=== PATIENT | female | born 1965 | race Two or more races ===

== ENCOUNTER 2017-04-05 12:07 | Observation (INO) | payer BC, OTHER ==
[2017-04-05] MEDS ORDERED: ASPIRIN 81 MG TABLET, CHEWABLE PO ONE (12:22)
[2017-04-05] MEDS ORDERED: AMLODIPINE BESYLATE 5 MG TABLET PO ONE (12:36)
--- NOTE | 2017-04-05 12:37 | ER Document Report ---
ED Medical Screen (RME) - General Chief Complaint: Chest Pain Stated Complaint: CHEST PAIN TRAVEL OUTSIDE OF THE [place] IN LAST 30 DAYS: No - HPI Notes: 04/05/17 12:36 Chest pain greater 24 hours described as tightness center of the chest with elevated blood pressure states compliant with her blood pressure medication amlodipine 2.5 mg Benzapril 10 mg - Related Data Allergies/Adverse Reactions: No Known Allergies Allergy (Verified 04/05/17 12:35) Past Medical History - Past Medical History Cardiac Medical History: Reports: Hx Hypertension Renal/ Medical History: Denies: Hx Peritoneal Dialysis GI Medical History: Reports: Hx Ulcer Past Surgical History: Reports: Hx Section, Hx Cholecystectomy, Hx Gastric Bypass Surgery - Immunizations Hx Diphtheria, Pertussis, Tetanus Vaccination: Yes Review of Systems - Review of Systems Cardiovascular: Chest pain Physical Exam - Vital signs Vitals: Temp Pulse Resp BP Pulse Ox 98.8 F 105 H 18 195/90 H 99 04/05/17 12:16 04/05/17 12:16 04/05/17 12:16 04/05/17 12:16 04/05/17 12:16 - Cardiovascular Rhythm: Regular Heart sounds: Normal auscultation Course - Re-evaluation Re-evalutation: 04/05/17 12:37 RI have greeted and performed a rapid initial assessment of this patient. A comprehensive ED assessment and evaluation of the patient, analysis of test results and completion of the medical decision making process will be conducted by additional ED providers. - Vital Signs Vital signs: Temp Pulse Resp BP Pulse Ox 98.8 F 105 H 18 195/90 H 99 04/05/17 12:16 04/05/17 12:16 04/05/17 12:16 04/05/17 12:16 04/05/17 12:16
--- NOTE | 2017-04-05 12:52 | ER Document Report ---
ED General - General Chief Complaint: Chest Pain Stated Complaint: CHEST PAIN Mode of Arrival: Ambulatory Information source: Patient Notes: 51-year-old female history of hypertension presents with complaints of high blood pressure chest pressure sensation down the left arm associated with shortness of breath.patient denies any previous previous MIs, admits to history congestive heart failure TRAVEL OUTSIDE OF THE [place] IN LAST 30 DAYS: No - HPI Onset: Yesterday Onset/Duration: Persistent Quality of pain: Pressure Severity: Mild Pain Level: 1 Associated symptoms: Chest pain, Shortness of breath Exacerbated by: Walking Relieved by: Denies Similar symptoms previously: Yes Recently seen / treated by doctor: No - Related Data Allergies/Adverse Reactions: No Known Allergies Allergy (Verified 04/05/17 12:35) Home Medications: Current Home Medications Amlodipine Besylate/Benazepril [Amlodipine-Benazepril 2.5-10] 1 each PO DAILY [History] Past Medical History - Social History Smoking Status: Never Smoker Cigarette use (# per day): No Chew tobacco use (# tins/day): No Smoking Education Provided: No Family History: CAD Patient has suicidal ideation: No Patient has homicidal ideation: No - Past Medical History Cardiac Medical History: Reports: Hx Hypertension Renal/ Medical History: Denies: Hx Peritoneal Dialysis GI Medical History: Reports: Hx Ulcer Past Surgical History: Reports: Hx Section, Hx Cholecystectomy, Hx Gastric Bypass Surgery - Immunizations Hx Diphtheria, Pertussis, Tetanus Vaccination: Yes Review of Systems - Review of Systems Notes: PHYSICAL EXAMINATION: GENERAL: Well-appearing, well-nourished and in no acute distress. HEAD: Atraumatic, normocephalic. EYES: Pupils equal round and reactive to light, extraocular movements intact, conjunctiva are normal. ENT: Nares patent, oropharynx clear without exudates. Moist mucous membranes. NECK: Normal range of motion, supple without lymphadenopathy LUNGS: Breath sounds clear to auscultation bilaterally and equal. No wheezes rales or rhonchi. HEART: Regular rate and rhythm without murmurs ABDOMEN: Soft, nontender, nondistended abdomen. No guarding, no rebound. No masses appreciated. Female : deferred Musculoskeletal: Normal range of motion, no pitting or edema. No cyanosis. NEUROLOGICAL: Cranial nerves grossly intact. Normal speech, normal gait. Normal sensory, motor exams PSYCH: Normal mood, normal affect. SKIN: Warm, Dry, normal turgor, no rashes or lesions noted. Physical Exam - Vital signs Vitals: Temp Pulse Resp BP Pulse Ox 98.8 F 105 H 18 195/90 H 99 04/05/17 12:16 04/05/17 12:16 04/05/17 12:16 04/05/17 12:16 04/05/17 12:16 Course - Re-evaluation Re-evalutation: 04/05/17 14:00 First set cardiac enzymes are negative EKG noted sinus tachycardia, otherwise patient looks well is in no significant distress she is quite hypertensive and was given her home medication and has been placed on monitor and will be admitted for hospital observation for her chest pain - Vital Signs Vital signs: Temp Pulse Resp BP Pulse Ox 98.8 F 105 H 18 195/90 H 99 04/05/17 12:16 04/05/17 12:16 04/05/17 12:16 04/05/17 12:16 04/05/17 12:16 - Laboratory Result Diagrams: 04/05/17 12:40 04/05/17 12:40 Laboratory results interpreted by me: 04/05/17 04/05/17 12:40 12:45 Sodium 146.1 H Urine Blood MODERATE H - Diagnostic Test Radiology reviewed: Image reviewed, Reports reviewed - EKG Interpretation by Ne EKG shows normal: Sinus rhythm, [place], Intervals, QRS Complexes Rate: Tachycardia Discharge - Discharge Clinical Impression: Hypertensive urgency Chest pain Qualifiers: Chest pain type: unspecified Qualified Code(s): R07.9 - Chest pain, unspecified Admitting Provider: Hospitalist Unit Admitted: Telemetry
[2017-04-05 13:01] LABS: ABSOLUTE LYMPHOCYTES (AUTO) 2.2 10^3/uL (0.5-4.7); ABSOLUTE MONOCYTES (AUTO) 0.5 10^3/uL (0.1-1.4); BASOPHILS % (AUTO) 0.4 % (0-2); EOSINOPHILS % (AUTO) 0.4 % (0-6); HEMATOCRIT 38.9 % (36.0-47.0); HEMOGLOBIN 13.6 g/dL (12.0-15.5); HGB HCT DIFFERENCE 1.9; LYMPHOCYTES % (AUTO) 22.6 % (13-45); MEAN CORPUSCULAR HEMOGLOBIN 30.9 pg (27.0-33.4); MEAN CORPUSCULAR HGB CONC 35.1 g/dL (32.0-36.0); MEAN CORPUSCULAR VOLUME 88 fl (80-97); MONOCYTES % (AUTO) 4.7 % (3-13); RED BLOOD COUNT 4.42 10^6/uL (3.72-5.28); RED CELL DISTRIBUTION WIDTH 13.5 % (11.5-14.0); SEGMENTED NEUTROPHILS % (AUTO) 71.9 % (42-78); WHITE BLOOD COUNT 9.8 10^3/uL (4.0-10.5)
[2017-04-05 13:04] LABS: APPEARANCE,URINE SLIGHTLY-CLOUDY; BILIRUBIN,URINE NEGATIVE (NEGATIVE); GLUCOSE, URINE NEGATIVE (NEGATIVE); KETONES,URINE NEGATIVE (NEGATIVE); LEUKOCYTE ESTERASE,URINE NEGATIVE (NEGATIVE); NITRITE,URINE NEGATIVE (NEGATIVE); PROTEIN,URINE NEGATIVE (NEGATIVE); URINE SPECIFIC GRAVITY 1.015; UROBILINOGEN,URINE NEGATIVE mg/dL (<2.0)
[2017-04-05 13:06] LABS: PROTHROMBIN TIME 13.2 SEC (11.4-15.4)
[2017-04-05 13:20] LABS: URINE BARBITURATES SCREEN NEGATIVE; URINE METHADONE SCREEN NEGATIVE; URINE OPIATES LOW NEGATIVE; URINE PHENCYCLIDINE SCREEN NEGATIVE
[2017-04-05 13:20] LABS: ALANINE AMINOTRANSFERASE 31 U/L (9-52); ALBUMIN 4.7 g/dL (3.5-5.0); ALKALINE PHOSPHATASE 106 U/L (38-126); ANION GAP 10 (5-19); ASPARTATE AMINO TRANSFERASE 21 U/L (14-36); BILIRUBIN,DIRECT 0.4 mg/dL (0.0-0.4); BILIRUBIN,TOTAL 0.7 mg/dL (0.2-1.3); BLOOD UREA NITROGEN 16 mg/dL (7-20); CALCIUM 10.1 mg/dL (8.4-10.2); CARBON DIOXIDE 30 mmol/L (22-30); CHLORIDE 106 mmol/L (98-107); CREATINE KINASE 106 U/L (30-135); CREATININE RESULT 0.82 mg/dL (0.52-1.25); GLUCOSE 93 mg/dL (75-110); LIPASE 130.3 U/L (23-300); MAGNESIUM 2.1 mg/dL (1.6-2.3); POTASSIUM 4.3 mmol/L (3.6-5.0); SODIUM 146.1 mmol/L (137-145); TOTAL PROTEIN 7.8 g/dL (6.3-8.2)
[2017-04-05 13:34] LABS: CREATINE KINASE MB 1.08 ng/mL (<4.55); TROPONIN I 0.019 ng/mL
[2017-04-05] MEDS ORDERED: HYDRALAZINE HCL INJ/PF 20 MG/1 ML SDV IV PRN (13:46)
[2017-04-05] MEDS ORDERED: ACETAMINOPHEN 325 MG TABLET PO PRN (13:53)
[2017-04-05] MEDS ORDERED: NITROGLYCERIN 2% OINTMENT 1 GM PACKET TP ONE (14:15)
[2017-04-05] MEDS ORDERED: PANTOPRAZOLE SODIUM 40 MG VIAL IV ONE (14:15)
--- NOTE | 2017-04-05 14:25 | PDOC H&P ---
History of Present Illness Admission Date/PCP: [facility] Patient complains of: chest pain History of Present Illness: VENTURA PALENCIA is a 51 year old female with past medical history of hypertension presents with 2 days history of chest pain radiating to left arm. Patient states that she has been hospitalized in the past for CHF in [place]. She states that she has lost a significant amount of weight since that hospitalization secondary to gastric bypass surgery. She denies any complications of her gastric bypass surgery. She denies reflux disease. She is status post cholecystectomy. Past Medical History Cardiac Medical History: Reports: Congestive Heart Failure, Hypertension GI Medical History: Reports: Peptic Ulcer Disease Past Surgical History Past Surgical History: Reports: Section, Cholecystectomy, Gastric Bypass Surgery Social History Information Source: Patient Lives with: Family Smoking Status: Current Every Day Smoker Frequency of Alcohol Use: Occasional Hx Recreational Drug Use: No Hx Prescription Drug Abuse: No - Advance Directive Resuscitation Status: Full Code Family History Family History: CAD Parental Family History Reviewed: Yes Children Family History Reviewed: Yes Sibling(s) Family History Reviewed.: Yes Medication/Allergy Home Medications: Amlodipine Besylate/Benazepril [Amlodipine-Benazepril 2.5-10] 1 each PO DAILY Allergies/Adverse Reactions: No Known Allergies Allergy (Verified 04/05/17 12:35) Review of Systems Constitutional: ABSENT: chills, fever(s), headache(s), weight gain, weight loss Eyes: ABSENT: visual disturbances Ears: ABSENT: hearing changes Cardiovascular: PRESENT: chest pain. ABSENT: dyspnea on exertion, edema, orthropnea, palpitations Respiratory: ABSENT: cough, hemoptysis Gastrointestinal: ABSENT: abdominal pain, constipation, diarrhea, hematemesis, hematochezia, nausea, vomiting Genitourinary: ABSENT: dysuria, hematuria Musculoskeletal: ABSENT: joint swelling Integumentary: ABSENT: rash, wounds Neurological: ABSENT: abnormal gait, abnormal speech, confusion, dizziness, focal weakness, syncope Psychiatric: ABSENT: anxiety, depression, homidical ideation, suicidal ideation Endocrine: ABSENT: cold intolerance, heat intolerance, polydipsia, polyuria Hematologic/Lymphatic: ABSENT: easy bleeding, easy bruising Physical Exam Vital Signs: Temp Pulse Resp BP Pulse Ox 98.8 F 105 H 18 195/90 H 97 04/05/17 12:16 04/05/17 12:16 04/05/17 12:16 04/05/17 12:16 04/05/17 13:15 Intake & Output 04/04/17 04/05/17 04/06/17 06:59 06:59 06:59 Weight 86.5 kg PHYSICAL EXAM: GENERAL: Appears well, no acute distress HEENT: Normocephalic, no scleral icterus, conjunctiva clear, EOEM intact, PERRLA , moist mucous membranes NECK: trachea midline, no thyromegally RESPIRATORY: Clear to auscultation, no wheezes/rhonchi CARDIAC: Regular rate and rhythm, no murmur/lester/rub ABDOMEN: Soft, no distension, no tenderness, no guarding, normal bowel sounds, negative Noavk sign RECTAL: deferred : deferred EXTREMITIES: No edema, cyanosis, clubbing MUSCULOSKELETAL: No joint swelling or deformity VASCULAR: normal peripheral pulses NEUROLOGIC: Alert, oriented to person/place/time, normal speech, cranial nerves grossly intact, 5/5 strength in all extremities, tactile sensation intact in all extremities SKIN: No rash, no wounds, no worrisome skin lesions PSYCHIATRIC: Normal mood, normal affect Results Laboratory Results: 04/05/17 12:40 04/05/17 12:40 04/05/17 04/05/17 04/05/17 12:40 12:40 12:45 WBC 9.8 RBC 4.42 Hgb 13.6 Hct 38.9 MCV 88 MCH 30.9 MCHC 35.1 RDW 13.5 Plt Count 246 Seg Neutrophils % 71.9 Lymphocytes % 22.6 Monocytes % 4.7 Eosinophils % 0.4 Basophils % 0.4 Absolute Neutrophils 7.0 Absolute Lymphocytes 2.2 Absolute Monocytes 0.5 Absolute Eosinophils 0.0 Absolute Basophils 0.0 Sodium 146.1 H Potassium 4.3 Chloride 106 Carbon Dioxide 30 Anion Gap 10 BUN 16 Creatinine 0.82 Est GFR ( Amer) > 60 Est GFR (Non-Af Amer) > 60 Glucose 93 Calcium 10.1 Magnesium 2.1 Total Bilirubin 0.7 AST 21 ALT 31 Alkaline Phosphatase 106 Total Protein 7.8 Albumin 4.7 Lipase 130.3 Urine Color YELLOW Urine Appearance SLIGHTLY-CLOUDY Urine pH 5.0 Ur Specific [place] 1.015 Urine Protein NEGATIVE Urine Glucose (UA) NEGATIVE Urine Ketones NEGATIVE Urine Blood MODERATE H Urine Nitrite NEGATIVE Ur Leukocyte Esterase NEGATIVE Urine WBC (Auto) 16 Urine RBC (Auto) 8 04/05/17 04/05/17 12:40 12:40 Creatine Kinase 106 CK-MB (CK-2) 1.08 Troponin I 0.019 Impressions: Chest X-Ray 04/05/17 12:23 IMPRESSION: NO SIGNIFICANT RADIOGRAPHIC FINDING IN THE CHEST. Assessment & Plan - Diagnosis (1) Hypertensive urgency Is this a current diagnosis for this admission?: YesPlan: Discontinue previous home medication. Start Norvasc 10 mg daily. Nitroglycerin paste 1 inch to 6 hours. When necessary IV hydralazine. (2) Chest pain Qualifiers: Chest pain type: unspecified Qualified Code(s): R07.9 - Chest pain, unspecified Is this a current diagnosis for this admission?: YesPlan: Place in observation status on telemetry monitoring. Serial cardiac enzymes to rule out LA. Start aspirin. Check lipid panel. Stress test in the morning. Check echocardiogram given history of CHF admission. (3) History of CHF (congestive heart failure) Is this a current diagnosis for this admission?: Yes (4) History of gastric bypass Is this a current diagnosis for this admission?: YesPlan: IV Protonix. (5) Tobacco abuse Is this a current diagnosis for this admission?: Yes - Time Time Spent: Greater than 70 Minutes Smoking Cessation Education: 3 to 10 minutes Anticipated discharge: Home Within: within 24 hours
[2017-04-05] MEDS ORDERED: AMLODIPINE BESYLATE 10 MG TABLET PO ONE (15:00)
[2017-04-05] MEDS: NITROGLYCERIN 2% OINTMENT 1 GM PACKET TP SCH (17:15)
[2017-04-05 19:13] LABS: CREATINE KINASE MB 0.96 ng/mL (<4.55); TROPONIN I 0.031 ng/mL
--- NOTE | 2017-04-05 21:37 | EKG REPORT ---
SEVERITY:- ABNORMAL ECG - SINUS TACHYCARDIA PROBABLE LEFT ATRIAL ABNORMALITY LEFT VENTRICULAR HYPERTROPHY : Confirmed by: Abdirashid Bruno 05-Apr-2017 21:36:08
[2017-04-05] MEDS: PANTOPRAZOLE SODIUM 40 MG VIAL IV SCH (21:45)
[2017-04-06] MEDS: NITROGLYCERIN 2% OINTMENT 1 GM PACKET TP SCH ×3 (00:23→11:19)
[2017-04-06 01:17] LABS: CREATINE KINASE MB 0.76 ng/mL (<4.55); TROPONIN I 0.024 ng/mL
[2017-04-06 07:13] LABS: CHOLESTEROL 176.44 mg/dL (0-200); CREATINE KINASE 80 U/L (30-135); Direct HDL 75 mg/dL (>40); TRIGLYCERIDES 89 mg/dL (<150)
[2017-04-06 07:24] LABS: DIRECT LDL 67 mg/dL (<100)
[2017-04-06 07:25] LABS: CREATINE KINASE MB 0.95 ng/mL (<4.55); TROPONIN I 0.032 ng/mL
[2017-04-06] MEDS ORDERED: ENOXAPARIN SODIUM INJ 40 MG/0.4 ML DISP.SYRIN SUBCUT SCH (08:00)
[2017-04-06] MEDS ORDERED: LISINOPRIL 10 MG TABLET PO ONE (09:45)
[2017-04-06] MEDS ORDERED: AMLODIPINE BESYLATE 10 MG TABLET PO SCH (10:00)
[2017-04-06] MEDS ORDERED: ASPIRIN 81 MG TABLET, ENT COATED PO SCH (10:00)
[2017-04-06] MEDS: PANTOPRAZOLE SODIUM 40 MG VIAL IV SCH (11:19)
--- NOTE | 2017-04-06 11:42 | XCELERA REPORT ---
[address] [address] Transthoracic Echocardiogram Report Name: VENTURA PALENCIA Age: 51 yrs Gender: Female : 1965 Patient Status: Inpatient Patient Location: [id number]\401\[id number]\A Study Date: 04/06/2017 10:20 AM Height: 64 in Weight: 190 lb BSA: 1.9 m2 Procedure: A two-dimensional transthoracic echocardiogram with color flow and Doppler was performed. Study Quality: Fair. Reason For Study: chest pain History: Chest pain. Ordering Physician: DIYA MI Performed By: Cora Rollins Interpretation Summary Chest pain Mild to moderate LV dilatation. There is normal left ventricular wall thickness. LV EF is > than 55%% Left ventricular systolic function is normal. Doppler measurements suggest normal left ventricular diastolic function The left ventricular wall motion is normal. There is no thrombus. There is no ventricular septal defect visualized. The right ventricle is normal in size and function. The right atrium is normal. The left atrium is mildly dilated. The interatrial septum is intact with no evidence for an atrial septal defect. There is no evidence of mitral valve prolapse. There is no vegetation seen on the mitral valve. There is no mitral valve stenosis. There is a mild to moderate amount of mitral regurgitation There is no aortic valve stenosis There is no LVOT obstruction. No aortic regurgitation is present. There is no tricuspid stenosis. NO TR,, BUT POOR INTEROGATION OF tRICUSPID VALVE.UNABLE TO CALCULATE RVSP DUE TO INSSUFFICIENT TR JET. There is no pericardial effusion. MMode/2D Measurements \T\ Calculations RVDd: 2.9 cm LVIDd: 6.2 cm FS: 26.7 % Ao root diam: 2.8 cm IVSd: 1.1 cm LVIDs: 4.5 cm EDV(Teich): 193.0 ml LVPWd: 1.1 cm ESV(Teich): 94.1 ml Ao root area: 6.1 cm2 EF(Teich): 51.2 % LA dimension: 4.4 cm Doppler Measurements \T\ Calculations MV E max gabe: MV P1/2t max gabe: Ao V2 max: LV V1 max P.7 cm/sec 97.2 cm/sec 144.6 cm/sec 4.5 mmHg MV A max gabe: MV P1/2t: 53.4 msec Ao max PG: LV V1 max: 90.3 cm/sec 8.4 mmHg 105.6 cm/sec MV E/A: 1.1 MVA(P1/2t): 4.1 cm2 MV dec slope: 533.2 cm/sec2 MV dec time: 0.18 sec PA V2 max: 87.4 cm/sec PA max P.1 mmHg Left Ventricle Mild to moderate LV dilatation. There is normal left ventricular wall thickness. LV EF is > than 55%%. Left ventricular systolic function is normal. Doppler measurements suggest normal left ventricular diastolic function. The left ventricular wall motion is normal. There is no thrombus. There is no ventricular septal defect visualized. Right Ventricle The right ventricle is normal in size and function. Atria The right atrium is normal. The left atrium is mildly dilated. The interatrial septum is intact with no evidence for an atrial septal defect. Mitral Valve There is no evidence of mitral valve prolapse. There is no vegetation seen on the mitral valve. There is no mitral valve stenosis. There is a mild to moderate amount of mitral regurgitation. Aortic Valve There is no aortic valvular vegetation. There is no aortic valve stenosis. There is no LVOT obstruction. No aortic regurgitation is present. Tricuspid Valve There is no tricuspid stenosis. NO TR,, BUT POOR INTEROGATION OF tRICUSPID VALVE.UNABLE TO CALCULATE RVSP DUE TO INSSUFFICIENT TR JET. Pulmonic Valve There is no pulmonic valvular stenosis. There is no pulmonic valvular regurgitation. Great Vessels The aortic root is normal size. Effusions There is no pericardial effusion. : DIYA MI > Hilda Andino
[2017-04-06] MEDS ORDERED: REGADENOSON INJ 0.4 MG/5 ML DISP.SYRIN IV ONE (11:45)
[2017-04-06 12:11] VITALS: BP 166/95
--- NOTE | 2017-04-06 13:47 | PDOC DISCHARGE SUMMARY ---
General - Admit/Disc Date/PCP Admission Date/Primary Care Provider: 04/06/17 09:55 - Discharge Diagnosis (1) Chest pain Is this a current diagnosis for this admission?: YesSummary: Chest pain is resolved. Follow with outpatient cardiology. (2) Hypertensive urgency Is this a current diagnosis for this admission?: YesSummary: Blood pressure improved. Patient will be started on 10 mg lisinopril 50 mg of metoprolol. She will need to follow-up with outpatient cardiology for further management of her blood pressure or establish care with primary care physician. (3) Tobacco abuse Is this a current diagnosis for this admission?: YesSummary: Smoking cessation is advised (4) Dilated cardiomyopathy Summary: EF was normal cardiac echo. Per my discussion with cardiology, patient has dilated left ventricle. Stress tests was indeterminate due to motion artifact. However, it did show dilated cardiomyopathy as well. Follow with outpatient cardiology. Continue newly prescribed home medicines. - Additional Information Resuscitation Status: Full Code Home Medications: Lisinopril [Prinivil 10 mg Tablet] 10 mg PO DAILY #30 tablet 04/06/17 Metoprolol Succinate 50 mg PO DAILY #30 tab.er.24h 04/06/17 History of Present Illness History of Present Illness: H&P per Dr. Cotter. History of Present Illness Admission Date[facility]P: [facility] Patient complains of: chest pain History of Present Illness: VENTURA PALENCIA is a 51 year old female with past medical history of hypertension presents with 2 days history of chest pain radiating to left arm. Patient states that she has been hospitalized in the past for CHF in [place]. She states that she has lost a significant amount of weight since that hospitalization secondary to gastric bypass surgery. She denies any complications of her gastric bypass surgery. She denies reflux disease. She is status post cholecystectomy. Hospital Course Hospital Course: The patient did well overall her chest pain resolved. She worked for stress test which was read by cardiology as having an EF of about 35%. Cardiac echo however did not show any depression in her EF. Stress test was considered difficult to interpret due to motion artifact. Was felt that her cardiomyopathy is likely secondary to underlying uncontrolled hypertension. Cardiology recommended should have beta lesvia and GINGER inhibitor. Therefore she was started on 50 of metoprolol daily and 10 of lisinopril daily. Plan will be to follow-up as an outpatient with cardiology. Physical Exam Vital Signs: Temp Pulse Resp BP Pulse Ox 98.3 F 78 16 166/95 H 100 04/06/17 11:14 04/06/17 11:14 04/06/17 11:14 04/06/17 11:14 04/06/17 11:14 Physical Exam: General: This is a well developed, well-nourished female resting in bed currently in no acute distress Heart: Regular rate and rhythm no murmurs rubs or gallops. Lungs: Clear to auscultation bilaterally with equal rise and fall of chest. Abdomen nondistended Extremities: no clubbing cyanosis or edema. 1+ peripheral pulses. Neuro: She is awake alert oriented cranial nerves are grossly intact. Results Impressions: Chest X-Ray 04/05/17 12:23 IMPRESSION: NO SIGNIFICANT RADIOGRAPHIC FINDING IN THE CHEST. Qualifiers PATEINT BEING DISCHARGED WITH ANY OF THE FOLLOWING DIAGNOSIS?: No
--- NOTE | 2017-04-06 17:05 | EKG REPORT ---
SEVERITY:- BORDERLINE ECG - SINUS RHYTHM BORDERLINE T ABNORMALITIES, ANT-LAT LEADS BORDERLINE PROLONGED QT INTERVAL : Confirmed by: Abdirashid Bruno 06-Apr-2017 17:04:50
== END 2017-04-06 14:59 | disposition home or self-care (01) ==
LOC: ER 12:07 → EH 13:53 → UNDOADMOB 15:22 → EH 16:09 → 4N 16:09 → OBSVTOIN 04-06 09:55 → INTOOBSV 04-06 09:55
PROVIDERS: ADMIT Family Medicine; ATTEND Family Medicine
PROC: HZ31ZZZ Individual Counseling for Substance Abuse Treatment, Behavioral (ICD-10-PCS; principal; 2017-04-05)
DX: I16.0 Hypertensive urgency (principal); I42.0 Dilated cardiomyopathy; I50.9 Heart failure, unspecified; Z79.899 Other long term (current) drug therapy; Z98.84 Bariatric surgery status; Z90.49 Acquired absence of other specified parts of digestive tract; Z87.11 Personal history of peptic ulcer disease; F17.200 Nicotine dependence, unspecified, uncomplicated; Z82.49 Family history of ischemic heart disease and other diseases of the circulatory system
CPT/HCPCS: 93005 ×2; 99285; 96374; 36415; 82553 ×2; 82550 ×2; 83690; 83735; 85025; 85610; 80053; 81001; 84484 ×2; 80307; 80061; 93306; 93017; 71020; 78452; 93010 ×2; 99406; G0378 ×3; A9500; J2785; S0164 ×2; J3490 ×2; Q9969